=== PATIENT | male | born 1995 | race African-American/Black ===

== ENCOUNTER 2024-12-27 23:34 | Emergency (ER) | payer SELFPAY | END 2024-12-28 00:27 | disposition home or self-care (01) | LOC: CSHERS 23:34 | DX: J02.8 Acute pharyngitis due to other specified organisms (principal); B97.89 Other viral agents as the cause of diseases classified elsewhere; F17.210 Nicotine dependence, cigarettes, uncomplicated | CPT/HCPCS: 87081; 87430; 99283 ==